=== PATIENT | male | born 1985 | race Two or more races ===

== ENCOUNTER 2019-04-02 06:06 | Emergency (ER) | payer OTHER ==
[~2019-04-02] VITALS: Ht 167.6 cm; Wt 64.4 kg
== END 2019-04-02 11:24 | disposition home or self-care (01) ==
LOC: ER 06:06
DX: N20.1 Calculus of ureter (principal)

== ENCOUNTER → 2019-11-27 | Outpatient (CLI) | payer OTHER | END | disposition home or self-care (01) | LOC: TOM 09:02 | PROVIDERS: ATTEND Urology | DX: N20.1 Calculus of ureter (principal) ==